=== PATIENT | male | born 1940 | race Hispanic/Latino ===

== ENCOUNTER 2017-05-16 10:00 | Day surgery (SDC) | payer MEDICARE ==
[2017-05-12 08:04] VITALS: BMI 27.4
[2017-05-16 10:45] LABS: BASO # 0.01 K/mm3 (0.0-2.0); BASO % 0.2 % (0.0-3.0); EOS # 0.1 (0.0-0.7); EOS % 1.6 % (1.5-5.0); GRAN # 3.51 (1.4-6.5); GRAN % 63.2 % (50.0-68.0); HEMOGLOBIN 15.3 gm/dL (14.0-18.0); LYMPH # 1.4 (1.2-3.4); LYMPH % 24.9 % (22.0-35.0); MEAN CELL VOLUME 93.7 fL (80.0-105.0); MEAN CORPUSCULAR HEMOGLOBIN 31.9 pg (25.0-35.0); MEAN CORPUSCULAR HGB CONC 34.1 g/dl (31.0-37.0); MONO # 0.6 (0.1-0.6); MONO % 10.1 % (1.0-6.0); PLATELET COUNT 191 10^3/uL (120.0-450.0); RBC 4.79 10^6/uL (3.5-6.1); RED CELL DISTRIBUTION WIDTH 13.3 % (11.5-14.5); WHITE BLOOD COUNT 5.6 10^3/ul (4.5-11.0)
[2017-05-16 11:02] LABS: INR 1.08 (0.93-1.08); PROTHROMBIN TIME 11.7 Seconds (9.9-11.8)
[2017-05-16 11:26] LABS: ALB/GLOB RATIO 1.6 (1.1-1.8); ALBUMIN 4.6 g/dL (3.0-4.8); ALT/SGPT 56 U/L (7-56); AST/SGOT 55 U/L (15-59); BLOOD UREA NITROGEN 21 mg/dL (7-21); CALCIUM 9.7 mg/dL (8.4-10.5); GFR AFRICAN-AMERICAN > 60; GFR NON-AFRICAN AMERICAN > 60
[2017-05-16] MEDS ORDERED: Bupivacaine 0.5% Inj(30mL) ONE (12:07)
[2017-05-16] MEDS ORDERED: Lidocaine 1% Inj (20ml) ONE (12:07)
[2017-05-16] MEDS ORDERED: Liquid Adhesive TOP ONE (12:07)
[2017-05-16] MEDS ORDERED: Midazolam 2 MG/2 ML VIAL ONE (12:36)
[2017-05-16] MEDS ORDERED: Propofol 10 mg/ml Inj (20 ML) ONE (12:41)
[2017-05-16] MEDS ORDERED: HYDROmorphone 0.5 mg/0.5 ml ISec IVP PRN (13:29)
[2017-05-16] MEDS ORDERED: Sodium Chloride 0.9% 1,000 ML IV SCH (13:30)
--- NOTE | 2017-05-16 13:30 | PCM.SURG1 ---
Surgeon's Initial Post Op Note - Surgeon's Notes Surgeon: Dr. Harrington Department Editor: Dr. Gomez PGY3; Dr. Feng PGY2 Type of Anesthesia: IV Sedation, Local Anesthesia Administered By: Bharathi Pre-Operative Diagnosis: Right Forehead skin lesion Operative Findings: same Post-Operative Diagnosis: same Operation Performed: Excision of Right forehead lesion with advanced flap closure Specimen/Specimens Removed: skin lesion Estimated Blood Loss: EBL {In ML}: 2 Blood Products Given: N/A Post-Op Condition: Good Date of Surgery/Procedure: 05/16/17 Time of Surgery/Procedure: 13:30
[2017-05-16] MEDS ORDERED: Oxycodone/Acetaminophen 5/325 mg Tab PO ONE (13:31)
[2017-05-16 14:45] VITALS: RESP 18; TEMP 98.4; O2SAT 96
[2017-05-16 15:11] VITALS: BP 128/68; PULSE 68
--- NOTE | 2017-05-30 01:27 | OP ---
PROCEDURE DATE: 05/16/2017 PREOPERATIVE DIAGNOSES: Right forehead skin lesion and history of basal cell carcinoma. POSTOPERATIVE DIAGNOSES: Right forehead skin lesion and history of basal cell carcinoma. PROCEDURE: 1. Excision of a 3.5 x 1.5 cm right forehead skin lesion. 2. Advancement of flap closure of the wound. SURGEON: Goran Harrington MD ENGINEERING FACULTY: Dr. Gomez and Dr. Feng. TYPE OF ANESTHESIA: MAC and local anesthesia. ANESTHESIA ADMINISTERED BY: Dr. Singh. BLOOD LOSS: Minimal. SPECIMEN: Skin lesion. DESCRIPTION OF PROCEDURE: The patient is a 69-year-old male with history of a skin lesion on forehead before where he had previous excision of a basal cell carcinoma. The patient now comes in for another lesion located in the right forehead measuring about 3.5 x 1.5 cm just below the hairline. The patient was brought to the operating room and placed on the operating table in supine position. The patient was connected to the EKG, blood pressure, and pulse oximetry monitors. The patient then underwent MAC and local anesthesia. After being prepped and draped in the usual sterile fashion, the patient obtained local anesthesia to the area. The patient then also underwent MAC anesthesia prior to that. First, standard timeout procedure was placed and everybody in the room agreed to this patient identity, diagnosis and the procedure to be performed. Using a #11 blade, the area of the skin that was previously marked was excised in an elliptical fashion. Due to the size of the lesion, I was unable to bring down the skin together; therefore, flaps were raised both inferiorly and superiorly for about 3 cm in order to loosen up the skin and be able to bring it together. Once this was done, the skin came back together very nicely and the wound was closed in layers using 3-0 Vicryl for the deep dermal layer and 4-0 Monocryl for subcuticular closure of the skin. The patient tolerated the procedure well with no complications. The patient was transferred to recovery room for further observation. Goran Harrington MD [facility] # [id number]
== END 2017-05-16 15:30 | disposition home or self-care (01) ==
LOC: SDS 10:00
PROVIDERS: ATTEND General Practice
DX: L57.0 Actinic keratosis (principal); E11.9 Type 2 diabetes mellitus without complications; I25.10 Atherosclerotic heart disease of native coronary artery without angina pectoris; I10 Essential (primary) hypertension; Z79.01 Long term (current) use of anticoagulants
CPT/HCPCS: 14040; 36415; 80053; 85025; 85610; 85730; 88305; J0690; J1170; J1885; J2250; J2405; J2704; J3010; J7040; J7120